=== PATIENT | female | born 1945 | race Caucasian/White ===

== ENCOUNTER → 2016-06-01 | Outpatient (CLI) | payer OTHER, MEDICARE ==
[~2016-06-01] VITALS: Ht 160 cm; Wt 109.0 kg
[~2016-06-01] MED LIST: ASA81BEC PO; AVAPRO300 MG PO; BYSTOLIC 5 MG5 M1 PO; CHLORTHALIDONE25 MG PO; CIPROFLOXACIN500 M1 PO; GLUCOSAMINE HC500 MG PO; HYDRALAZINE 5050 MG PO; IBUPROFEN 200200 M1 PO; IRBESARTAN-HCT1 EACH PO; IRBESARTAN300 MG PO; LEVEMIR SUBQ; LOPRESSOR100 M1 PO; MAGNESIUM PO; NEURONTIN 300300 M1 PO; NOVOLOG100 UNIT/1 SUBQ; TRAVATAN Z2.5 ML OPHTHALMIC; UNICOMPLEX M TA1 TA1 PO; VITAMIN D2000 UNIT PO
--- NOTE | ~2016-06-01 | HPC ---
[facility] [place] [address] PAIN MANAGEMENT CONSULTATION Name: LOAN RODRIGUES Room #: REG [facility].#: [id number] Admission: 06/01/16 Attend Phys: Alan Reagan DO Discharge: Date of : 49 Report #: [id number] THIS REPORT FOR: //name// CC: Tano Reagan DATE OF SERVICE: 06/01/2016 REFERRING PHYSICIAN: Tano Brown MD CHIEF COMPLAINT: Low back pain, left lower extremity pain and paresthesias, chronic neck pain, right upper extremity pain and paresthesias. HISTORY OF PRESENT ILLNESS: As you know, the patient is a morbidly obese 71-year-old female returning in followup visit to review MRI of the lumbar spine obtained on 05/18/2016. She indicates no new injury and no new trauma that have led to progression of symptoms. Her pain is now located in the low back, left lower extremity, radiating all the way of the foot. She indicates that her pain is sharp, numbness, and tingling, exacerbated with lying down, improves with hot shower, walking, and medications. She is placing pain score at 4/10. She returns to review MRI and discuss treatment options. Further findings therein. ALLERGIES: KHRIS INHIBITORS, SULFA, MORPHINE, CODEINE, AMOXICILLIN, and ACTOS. CURRENT MEDICATIONS: Chlorthalidone, irbesartan, multivitamin, cholecalciferol, glucosamine chondroitin, magnesium, aspirin, Bystolic, ibuprofen, travoprost, Levemir, NovoLog, and hydralazine. SOCIAL HISTORY: The patient denies tobacco, alcohol or IV illicit drug use. 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 IMAGING: MRI of the lumbar spine obtained on 05/18/2016, shows L1-L2 unremarkable. L2-L3 shows interval disk space narrowing, mild facet arthropathy, ligamentum flavum hypertrophy. L3-L4, intervertebral disk height is normal. There is a grade 1 anterolisthesis of L3 on L5, mild posterior annular bulging effacing the ventral thecal sac, bilateral facet arthropathy, ligamentum flavum hypertrophy, no neural foraminal stenosis, there is mild central canal stenosis with sac measuring 1.0 cm. L4-L5, intervertebral disk height is normal, grade 1-2 anterolisthesis of L4 on L5, minimal posterior unroofing secondary to anterolisthesis, effacement of ventral thecal sac, bilateral facet arthropathy, ligamentum flavum hypertrophy, reduction of the central canal to moderate levels, moderate bilateral neural foraminal stenosis. L5-S1 unremarkable. PHYSICAL EXAMINATION: [address] [address] PAIN MANAGEMENT CONSULTATION Name: CARENANGLOAN Room #: REG Rui Rees#: [id number] Admission: 06/01/16 Attend Phys: Alan Reagan DO Discharge: Date of : 49 Report #: [id number] VITAL SIGNS: Blood pressure 143/78, pulse 87, respiratory rate 14 and unlabored, the patient is 98% on room air, height 5 feet 3 inches tall, weight 240.4 pounds, and BMI calculated 42.6. GENERAL: Well-developed, well-nourished, well-hydrated, morbidly obese 71-year-old female, appearing her stated age. She is placing pain score today 4/10. HEENT: Normocephalic, atraumatic. Pupils are equal, round, and reactive to light. Extraocular muscles are intact. Sclerae nonicteric without injection. NEUROLOGIC: Cranial nerves 2-12 are grossly intact. Speech is fluent. The patient is deemed a good historian. LUNGS: Clear. No wheezes, rhonchi, or rales. CARDIOVASCULAR: Regular. No appreciable gallop or rub. ABDOMEN: Soft, obese, nontender, and nondistended. EXTREMITIES: Show no clubbing, no cyanosis, and no edema. MUSCULOSKELETAL: Lower extremity strength appears equal and symmetrical 5/5, intact to light touch from L1 through S2 dermatomes. Deep tendon reflexes are symmetrical, but diminished at the patella and Achilles. Seated straight leg raising negative. Supine straight leg raising positive on the left. Ofelia's test is negative. ASSESSMENT: 1. Symptomatic lumbar radiculopathy. 2. Displacement of lumbar intervertebral disk with radiculopathy. 3. Lumbosacral spondylosis with radiculopathy. 4. Spondylolisthesis of L4 on L5. 5. Spinal stenosis of lumbar spine. 6. Lumbar degeneration. 7. Chronic intractable pain. PLAN: 1. The patient has returned today in followup visit where we reviewed in its entirety MRI and how this correlates to the patient's lumbar radicular symptoms. After this 20-minute discussion of the MRI findings for which we used mottling, recent interpretation and digital imaging, the patient had a further understanding of her pathology in the lower lumbar region. We discussed the treatment options that are available for lumbar radiculopathy secondary to a spondylolisthesis and subsequent spinal stenosis at the L4-L5 level. These would include the following. The patient and I discussed treatment options including physical therapy, stretching exercises, core strengthening and a concerted effort at weight loss. We discussed medication management with addition of a neuropathic pain medication and consistent nonsteroidal anti-inflammatory. We discussed lumbar epidural injections under fluoroscopic guidance, spinal cord stimulator therapy and surgical options. After reviewing the risks and benefits of all the proposed treatment options, the patient chose to begin with an epidural [facility] [address] [place] [address] PAIN MANAGEMENT CONSULTATION Name: RAVILOAN Room #: REG [facility].#: [id number] Admission: 06/01/16 Attend Phys: Alan Reagan DO Discharge: Date of : 47 Report #: [id number] injection under fluoroscopic guidance. The patient was advised the risks and benefits of a lumbar epidural injection. These risks include, but are not necessarily limited to bleeding, bruising, infection, worsening of pain, no relief of pain, also risk of temporary or permanent muscle weakness, temporary or permanent nerve damage, possible paralysis and . The patient states she understood and wished to proceed. 2. The patient will return to our clinic in approximately 2-3 weeks. At that time, we will review the efficacy of today's lumbar epidural injection and determine if a repeat injection might be necessary. We will see her back in followup visit and keep you apprised of her response. PROCEDURE NOTE DESCRIPTION OF PROCEDURE: Lumbar epidural steroid injection under fluoroscopic guidance. This is the first procedure of the first series that the patient is undergoing. After obtaining written consent, the patient was taken back to the fluoroscopy suite, placed in a prone position with pillow under the abdomen to decrease lumbar lordosis. The skin overlying the lumbosacral area was then prepped and draped in aseptic fashion. The L5-S1 vertebral interspace was then identified by AP fluoroscopy. The skin and subcutaneous tissue overlying the target site of injection was anesthetized with 3 mL 1% lidocaine. A 20-gauge 4-1/2-inch Tuohy needle was then advanced under fluoroscopic guidance towards the epidural space using a left paramedian approach. The epidural space was identified using loss of resistance to air technique. After negative aspiration for heme or cerebrospinal fluid, a total of 1 mL of Omnipaque was injected. A lumbar epidurogram was confirmed using both AP and lateral fluoroscopy. After negative aspiration for heme or cerebrospinal fluid, 5 mL of a solution containing 2 mL of 40 mg per mL, 80 mg total triamcinolone and 3 mL of lidocaine 1% was injected in increments. Contrast spread was noted posterior epidural space. The needle was then retracted approximately half way and needle tract flushed with 1 mL of 1% lidocaine. Needle was then removed. There were no apparent sensory or motor deficits in the lower extremity following the procedure. A sterile bandage was placed over the injection site. The heart rate, pulse, oximetry and blood pressure were continuously monitored after the procedure. There were no apparent complications. The patient tolerated the procedure well and was carefully [place] [address] PAIN MANAGEMENT CONSULTATION Name: LOAN RODRIGUES Room #: REG CLRui Rees#: [id number] Admission: 06/01/16 Attend Phys: Alan Reagan DO Discharge: Date of : 47 Report #: [id number] condition. There were no apparent complications. After meeting discharge criteria, the patient was then discharged home. <ELECTRONICALLY SIGNED> By: Alan Reagan DO 06/02/16 0832 [id number] 1410 Alan Reagan DO /nt
[2016-06-01 11:06] VITALS: BP 143/78
== END ==
LOC: PAIN 07:14
DX: M47.27 Other spondylosis with radiculopathy, lumbosacral region (principal); M48.06 Spinal stenosis, lumbar region; M51.16 Intervertebral disc disorders with radiculopathy, lumbar region; I10 Essential (primary) hypertension

== ENCOUNTER → 2016-09-22 | Outpatient (CLI) | payer OTHER, MEDICARE ==
[~2016-09-22] VITALS: Ht 160 cm; Wt 110.7 kg
[~2016-09-22] MED LIST changes: +HYDRALAZINE 2525 MG PO
--- NOTE | ~2016-09-22 | HPC ---
[facility] [address] [address] [place] [address] PAIN MANAGEMENT CONSULTATION Name: LOAN RODRIGUES Room #: REG [facility] MarissaLilianeVannessaLiliane#: [id number] Admission: 09/22/16 Attend Phys: Alan Reagan DO Discharge: Date of : 47 Report #: [id number] THIS REPORT FOR: //name// CC: Tano Reagan DATE OF SERVICE: 09/22/2016 REFERRING PHYSICIAN: Tano Brown M.D. CHIEF COMPLAINT: Low back pain, left lower extremity pain and paresthesias. HISTORY OF PRESENT ILLNESS: As you know, the patient is a morbidly obese 71-year-old female who returns today in followup visit with recurrent low back pain, left lower extremity pain and paresthesias. The patient reports a 100% improvement in overall pain with epidural injection provided 3 months ago. She returns today without inciting injury or trauma, with recurrence of pain for which she places pain score 7/10. She states the pain is sharp, numbness and tingling in sensation, exacerbated with lying down and improves with hot shower, walking, medications and epidural injections. She returns today requesting next in the series of epidural injections under fluoroscopic guidance. The patient did feel that part of her symptoms was related to left foot pathology. She sought podiatry consultation and it was determined that her foot was not the source of the patient's symptoms, the lumbar radicular symptoms were from the low back. She returns today for epidural injection under fluoroscopic guidance having done very well with previous injection. ALLERGIES: KHRIS INHIBITORS, SULFA, MORPHINE, CODEINE, AMOXICILLIN, GABAPENTIN, PIOGLITAZONE and DULOXETINE. CURRENT MEDICATIONS: Hydralazine, irbesartan, hydrochlorothiazide, multivitamin, cholecalciferol, glucosamine, magnesium, aspirin, Bystolic, ibuprofen, travoprost, Levemir and NovoLog. SOCIAL HISTORY: The patient denies tobacco, alcohol, IV or illicit drug use. She was retired in 2008, unaccompanied today. PHYSICAL EXAMINATION: VITAL SIGNS: Blood pressure 165/85, pulse 89, respiratory rate 22 and O2 sat 100%. Height 5 feet 3 inches tall, weight 244 pounds and BMI calculated at 43.2. GENERAL: Well-developed, well-nourished, well-hydrated and severely obese 71-year-old female, appearing her stated age, placing current pain score 7-8/10. HEENT: Normocephalic, atraumatic. Pupils equal, round and reactive to light. [place] [address] PAIN MANAGEMENT CONSULTATION Name: LOAN RODRIGUES Room #: REG [facility].#: [id number] Admission: 09/22/16 Attend Phys: Alan Reagan DO Discharge: Date of : 47 Report #: [id number] EXTREMITIES: Show no clubbing, no cyanosis, no edema. MUSCULOSKELETAL: The patient does have pain with rising from a seated position. Ambulation intensifies left lower extremity pain all the way to the foot. Seated straight leg raising negative. Supine straight leg raising positive on the left. Ofelia test negative. ASSESSMENT: 1. Symptomatic lumbar radiculopathy. 2. Displacement of lumbar intervertebral disk with radiculopathy. 3. Lumbosacral spondylosis with radiculopathy. 4. Lumbar facet arthropathy. 5. Lumbar degeneration. 6. Chronic intractable pain. PLAN: 1. The patient returns today in followup visit requesting to undergo next in the series of epidural injections under fluoroscopic guidance. The patient reports 100% improvement in overall pain with the epidural injection provided at last visit. This has lasted for nearly 3 months. She denies new injury or new trauma that may have led to recurrence of symptoms. She has had no changes in her medical history since our last visit. She is requesting we will perform an epidural injection under fluoroscopic guidance in hopes of building on success of the previous intervention. The patient was advised on the risks and benefits of the procedure. She states she understood and wished to proceed. 2. No medication changes were made at today's visit. The patient to continue current medical therapy as previously prescribed. 3. The patient to return to our clinic on an as needed basis for possible repeat epidural injection and discuss other options including surgical and medical. PROCEDURE NOTE PROCEDURE: Lumbar epidural steroid injection under fluoroscopic guidance. This is the second procedure of the first series that the patient is undergoing. After obtaining written consent, the patient was taken back to the fluoroscopy suite, placed in a prone position with pillow under the abdomen to decrease lumbar lordosis. The skin overlying the lumbosacral area was then prepped and draped in aseptic fashion. The lumbar vertebral interspace was then identified by AP fluoroscopy. The skin and subcutaneous tissue overlying the target site of injection was anesthetized with 3 mL 1% lidocaine. A 20-gauge 4.5-inch Tuohy needle was then advanced under fluoroscopic guidance towards the epidural space using a left paramedian approach. The epidural space was identified using loss of resistance to air technique. After negative [address] [address] PAIN MANAGEMENT CONSULTATION Name: LOAN RODRIGUES Room #: REG LACI Rees#: [id number] Admission: 09/22/16 Attend Phys: Alan Reagan DO Discharge: Date of : 47 Report #: [id number] aspiration for heme or cerebrospinal fluid, a total of 1 mL of Omnipaque was injected. A lumbar epidurogram was confirmed using both AP and lateral fluoroscopy. After negative aspiration for heme or cerebrospinal fluid, 5 mL of a solution containing 2 mL 40 mg per mL, 80 mg total triamcinolone and 3 mL of lidocaine 1% was injected in increments. Contrast spread was noted posterior epidural space. The needle was then retracted approximately half way and needle tract flushed with 1 mL of 1% of lidocaine. Needle was then removed. There were no apparent sensory or motor deficits in the lower extremity following the procedure. A sterile bandage was placed over the injection site. The heart rate, pulse, oximetry and blood pressure were continuously monitored after the procedure. There were no apparent complications. The patient tolerated the procedure well and was carefully escorted to the recovery room in stable condition. There were no apparent complications. After meeting discharge criteria, the patient was then discharged home. By: [id number] [id number] Alan Reagan DO /nt
[2016-09-22 09:08] VITALS: BP 165/85
== END ==
LOC: PAIN 08:01
DX: M47.27 Other spondylosis with radiculopathy, lumbosacral region (principal); G89.29 Other chronic pain; E66.01 Morbid (severe) obesity due to excess calories; I10 Essential (primary) hypertension

== ENCOUNTER → 2017-07-13 | Outpatient (CLI) | payer OTHER, MEDICARE ==
[~2017-07-13] VITALS: Ht 160 cm; Wt 113.4 kg
--- NOTE | ~2017-07-13 | P ---
[facility] [place] [address] [place] [address] PROCEDURE REPORT Name: RAVILOAN King Room #: REG [facility]#: [id number] Admission: 07/13/17 Attend Phys: Juan Alberto Jay Discharge: Date of : 47 Report #: [id number] THIS REPORT FOR: //name// CC: Juan Alberto Brown MD DATE OF SERVICE: 07/13/2017 PROCEDURE PERFORMED: Colonoscopy with biopsies. HISTORY OF PRESENT ILLNESS: The patient is a 72-year-old female with a previous history of large colon polyp that I was not able to remove endoscopically in 2015. She therefore underwent a right hemicolectomy by Dr. Glez. She is here for routine followup. She reports 6-8 loose stools per day ever since she had her right hemicolectomy. She denies any abdominal pain or blood in her stools. No family history of colon cancer. DESCRIPTION OF PROCEDURE: The risks and benefits of the procedure were explained to the patient, those risks including but not limited to bleeding, perforation and the risk of sedation. She understood these risks and gave informed consent. Sedation was given using propofol per anesthesia. Next, a digital rectal exam was initially performed, which was normal. Next, using a standard Fujinon colonoscope, the scope was placed in the patient's anus and advanced under direct vision into the right colon, at which point, surgical anastomosis was noted. This was well healed and widely patent. The terminal ileum was intubated and normal in appearance. The scope was then slowly withdrawn. The remaining transverse colon was normal. Descending colon was normal. In the sigmoid colon, multiple diverticula were noted. No evidence of inflammation. A 4 mm sessile polyp was also noted. This was removed with cold forceps. Because of the patient's history of loose stools, random biopsies were also obtained today to rule out the possibility of microscopic colitis. The rectal mucosa was normal. On retroflexion, no abnormalities were noted. The scope was then withdrawn and the procedure terminated. The patient tolerated the procedure well. IMPRESSION: 1. Small colonic polyp. 2. Surgical anastomosis noted in the right colon. 3. Sigmoid diverticulosis. 4. Otherwise, normal colonoscopy. RECOMMENDATIONS: 1. Await biopsy results. 2. Repeat colonoscopy in 5 years. 3. We discussed starting a trial of Questran on a daily basis. A script was [address] [address] PROCEDURE REPORT Name: LOAN RODRIGUES Room #: REG [facility] Cabrera#: [id number] Admission: 07/13/17 Attend Phys: Juan Alberto Jay Discharge: Date of : 47 Report #: [id number] given today. Thank you for allowing me to participate in her care. <ELECTRONICALLY SIGNED> By: Juan Alberto Howell MD 07/18/17 0907 1140 1150 Juan Alberto Howell MD /gerhard
--- NOTE | ~2017-07-13 | S ---
[facility] [address] [address] SURGICAL PATH RPT PROCEDURE Name: LOAN JENKINS Room #: REG LACI Matthews.#: [id number] Admission: 07/13/17 Date of : 49 Discharge: Report #: [id number] Path Case #: [id number] PATHOLOGY REPORT COLLECTION DATE: 07/13/2017 RECEIVED DATE: 07/13/2017 SUBMITTING PHYS: Dr. Juan Alberto Howell OTHER PHYS: Dr. Tano Brown SPECIMEN(S) RECEIVED: A.Random bx of colon R/O microscopic colitis B.Bx of polyp at sigmoid colon * * * * * * * * * * * * FINAL DIAGNOSIS: A. Large intestinal mucosa, random colon, rule out microscopic colitis, endoscopic biopsy: - Mild focal active colitis (please see comment). - Negative for dysplasia or malignancy. B. Polyp, at sigmoid colon, endoscopic biopsy: - Hyperplastic polyp. - Negative for dysplasia. (IUV:christy; 07/14/2017) COMMENT: Examination of the "random colon, rule out microscopic colitis" biopsy tissue shows scattered foci of surface epithelial inflammation, as well as cryptitis. The lamina propria cellularity is mildly increased with a mixture of lymphocytes, plasma cells, eosinophils as well as macrophages. There are no viral inclusions, granulomata, or parasitic organisms present. The crypts are present at regular intervals, and there is no crypt architectural distortion identified. Overall, findings are nonspecific and may be secondary to a resolved episode of colitis, focal mild active colitis, bowel preparation, or medication-induced colitis. Please correlate clinically and follow-up as indicated. (IUV:christy; 07/14/2017) PATHOLOGIST: Mariana Russ M.D. REPORT ELECTRONICALLY SIGNED BY: Mariana Russ M.D. DATE/TIME: 07/14/2017 13:20 * * * * * * * * * * * * GROSS PATHOLOGY: A. Received in formalin labeled "Loan Jenkins, random BX of colon, rule out microscopic colitis," are 4 segments of freire soft [facility] [place] [address] SURGICAL PATH RPT PROCEDURE Name: LOAN JENKINS Room #: [facility].#: [id number] Admission: 07/13/17 Date of : 49 Discharge: Report #: [id number] Path Case #: [id number] tissue measuring 1.8 x 0.9 x 0.3 cm in aggregate dimensions and ranging from 0.3 to 0.6 cm in maximum dimension. The specimen is submitted entirely in cassette A1. B. Received in formalin labeled "Loan Jenkins, BX of polyp at sigmoid colon," is a segment of freire soft tissue measuring 0.4 cm in maximum dimension. The specimen is submitted entirely in cassette B1. (TSD; 07/13/2017) CLINICAL HISTORY: Pre-OP DX: Hx of polypsdiarrhea Post-OP DX: Diverticulosis INITIAL CPT CODE(S): A; 51485 B; 11326 Professional services performed by [facility] at [facility] [address], [place] [address] Technical services performed by [facility] at [address] [place] [address], [address], [place] [address]. [facility] [address] [place] [address] PHONE: [phone] DIRECTOR: Valentino Junior M.D. * * * END OF REPORT * * *
== END | disposition home or self-care (01) ==
LOC: GI 08:39
DX: K63.5 Polyp of colon (principal); K57.30 Diverticulosis of large intestine without perforation or abscess without bleeding; K52.9 Noninfective gastroenteritis and colitis, unspecified; I10 Essential (primary) hypertension; E11.9 Type 2 diabetes mellitus without complications; E78.5 Hyperlipidemia, unspecified; Z86.010 Personal history of colon polyps; G47.33 Obstructive sleep apnea (adult) (pediatric); Z98.41 Cataract extraction status, right eye; Z90.710 Acquired absence of both cervix and uterus; Z98.0 Intestinal bypass and anastomosis status; Z98.42 Cataract extraction status, left eye; Z98.890 Other specified postprocedural states; Z79.899 Other long term (current) drug therapy; Z79.4 Long term (current) use of insulin; Z88.2 Allergy status to sulfonamides; Z88.6 Allergy status to analgesic agent; Z88.8 Allergy status to other drugs, medicaments and biological substances; Z79.82 Long term (current) use of aspirin
CPT/HCPCS: 62110; 62900

== ENCOUNTER → 2018-04-03 | Outpatient (CLI) | payer OTHER | LOC: CAT 11:01 | DX: Z13.6 Encounter for screening for cardiovascular disorders (principal); E78.00 Pure hypercholesterolemia, unspecified ==

== ENCOUNTER → 2018-04-03 | Outpatient (CLI) | payer OTHER, MEDICARE ==
--- NOTE | ~2018-04-03 | PFR/MVV ---
[facility] [place] [address] PULMONARY FUNCTION MVV/REPORT Name: LOAN RODRIGUES Room #: [facility]#: [id number] Admission: 04/03/18 Attend Phys: Tano Brown MD Discharge: Date of : 49 Report #: [id number] THIS REPORT FOR: //name// COPIES FOR: AGE: 73 SEX/RACE: F/C >> SPIROMETRY: (BTPS) Height: 62.0 in cm Weight: 242 lbs kg Exam Date: 04/03/18 PRE-RX POST-RX PRED BEST %PRED BEST %PRED %CHG FVC LITERS . 2.59 . 2.19 . 85 . 2.27 . 87 . 3 FEV1 LITERS . 2.06 . 1.83 . 89 . 1.88 . 91 . 3 FEV1/FVC % . 82 . 83 . 101 . 83 . 101 . -0 QOB51-85% L/Sec . 2.14 . 2.25 . 105 . 2.15 . 140 . -4 PEF L/SEC . 5.23 . 6.97 . 133 . 7.32 . 140 . 5 FEF50/FIF50 UNITLESS . <1.00 . 1.20 . . 0.82 . . -32 MVV L/Min . 84 . 84 . 100 f 1/Min . . 90 . >> LUNG VOLUMES: (BTPS) PRE-RX POST-RX PRED AVG %PRED AVG %PRED %CHG VC Liters . 2.59 . 2.93 . 113 . . . TLC Liters . 4.41 . 4.33 . 98 . . . RV Liters . 1.77 . 1.40 . 79 . . . RV/TLC % . 40 . 32 . 80 . . . FRC [address] Liters . 1.77 . 1.93 . 109 . . . FRC N2 Liters . 1.77 . . . . . ERV Liters . . 0.53 . . . . IC Liters . . 2.02 . . . . >> DIFFUSION: DLCO ml/Min/mmHg . 24.4 . 11.1 . 46 . . . DL Nyasia ml/Min/mmHg . 24.4 . 11.1 . 46 . . . DLCO/VA ml/Min/mmHg . 3.61 . 4.13 . 114 . . . VA Liters . . 2.70 . . . . [facility] [address] [place] [address] PULMONARY FUNCTION MVV/REPORT Name: LOAN RODRIGUES Room #: [facility].#: [id number] Admission: 04/03/18 Attend Phys: Tano Brown MD Discharge: Date of : 49 Report #: [id number] COMMENTS: COMMENTS: >> RESISTANCE: PRE-RX PRED AVG %PRED Raw Total cmH20/L/Sec . . 4.17 . Raw Insp cmH20/L/Sec . . 4.73 . Raw Exp cmH20/L/Sec . . 5.38 . Raw cmH20/L/Sec . 2.31 . 2.45 . 106 Gaw L/Sec/cmH20 . 0.423 . 0.408 . 96 sRaw cmH20 Sec . 4.07 . 4.91 . 120 sGaw l/cmH20 Sec . 0.246 . 0.204 . 83 Vtq Liters . . 2.00 . # = OUTSIDE 95% CONFIDENCE INTERVAL CALIBRATION: PRED: 3.00 ACTUAL: EXP 3.01 INSP 3.02 [facility]-OL10-06 [facility]-05 N-1804-4 >> INTERPRETATION/IMPRESSION: CC: Tano Bush DATE OF SERVICE: 04/03/2018 SPIROMETRY FEV1 is 1.83 L (89%). FVC 2.19 L (85%). FEV1/FVC is 83%. Postbronchodilator therapy: No significant response. Total lung capacity is 4.33 L (98%). RV 1.40 L (79%). Diffusing capacity is 46%. [address] [address] PULMONARY FUNCTION MVV/REPORT Name: LOAN RODRIGUES Room #: [facility] LACI Rees#: [id number] Admission: 04/03/18 Attend Phys: Tano Brown MD Discharge: Date of : 49 Report #: [id number] Pulmonary function studies are consistent with normal pulmonary function. Diffusing capacity is moderately decreased. Please correlate clinically. By: Ajit Crow MD /gerhard
== END ==
LOC: PUL 09:32
DX: R06.02 Shortness of breath (principal)

== ENCOUNTER → 2019-01-24 | Outpatient (CLI) | payer OTHER, MEDICARE | LOC: RAD 14:15 | DX: R06.00 Dyspnea, unspecified (principal) ==

== ENCOUNTER → 2019-01-26 | Outpatient (CLI) | payer OTHER, MEDICARE | LOC: PULREHAB 09:07 | DX: R06.02 Shortness of breath (principal); Z88.2 Allergy status to sulfonamides; Z88.1 Allergy status to other antibiotic agents; Z88.5 Allergy status to narcotic agent; Z88.8 Allergy status to other drugs, medicaments and biological substances ==

== ENCOUNTER → 2020-08-12 | Outpatient (CLI) | payer OTHER, MEDICARE | LOC: RAD 09:29 | PROVIDERS: ATTEND Internal Medicine | DX: M25.552 Pain in left hip (principal); I10 Essential (primary) hypertension; E11.9 Type 2 diabetes mellitus without complications; Z98.890 Other specified postprocedural states; Z79.899 Other long term (current) drug therapy; Z90.710 Acquired absence of both cervix and uterus ==

== ENCOUNTER 2020-08-29 11:53 | Inpatient (IN) | payer OTHER, MEDICARE ==
[~2020-08-29] VITALS: Ht 162.6 cm; Wt 108.9 kg
--- NOTE | ~2020-08-29 | EMS ---
[address] [address] EMS Patient Care Report Name: LOAN RODRIGUES Room #: REG LOI Rees#: [id number] Admission: 08/29/20 Attend Phys: Discharge: Date of : 49 Report #: [id number] THIS REPORT FOR: //name// Report Transmitted: 08/29/2020 14:41 EMS Care Summary [facility] MED-ACT Incident [id number] @ 08/29/2020 11:21 Incident Location [address] [place] [address] Patient LOAN RODRIGUES Female, 75 Years 1945 Patient Address [address] [facility] [address] [place] [address] Patient History Diabetes,Hypertension (HTN), Patient Allergies Codeine,Morphine,Sulfa,Amoxicillin,Amitriptyline,Cipro,Gabapentin,Actos, Patient Medications Chlorthalidone, Bystolic, Insulin, Hydralazine, Chief Complaint L hip and thigh pain Disposition Transported No Lights/[place] Reason Sick Person Transported To [facility] Narrative We arrived to find the pt sitting in a wheelchair in a recovery room of the clinic. Pt was at a pain clinic to be seen for L hip pain. The pt presents in mild discomfort as the staff wheeled her to the hallway. Staff stated that the [address] [address] EMS Patient Care Report Name: LOAN RODRIGUES Room #: REG [facility]#: [id number] Admission: 08/29/20 Attend Phys: Discharge: Date of : 49 Report #: [id number] pt was getting a lumbar puncture for her hip pain and the doctor "hit the nerve". Immediately the pt felt a sharp shooting pain down her L thigh. They gave her a total of 100 mcg of Fentanyl and 1cc of versed for the pain, but the pt had no relief so 911 was called. The pt said that the pain in her hip and now her thigh have continued and she has no relief with the meds that were given. Pt also stated that she didn't want any other medications because, "she didn't want to get addicted". Pt denied any other trauma or complaints. Pt was assisted to stand and sit on the cot. Pt rested comfortably en route to the ED. During the biocom to [facility], they advised that the didn't have neuro surgery currently. The pt was told this, but still requested [facility], because it's "the only hospital I go to". Pt care was transferred to [facility] staff without incident. Initial Vitals @11:43P: 84,BP: 139/69,SpO2: 99, @11:37P: 83,R: 18,BP: 147/82,Pain: 8/10,GCS: 15,Temp: 98F,SpO2: 99,Revised Trauma: 12, Assessments @11:35MENTAL:Person Oriented,Time Oriented,Place Oriented,Event Oriented,SKIN:HEENT:LUNG SOUNDS:ABDOMEN:PELVIS//GI:No Abnormalities,EXTREMITIES:PULSE:NEURO: Impression Pain (Non-Traumatic) Procedures @PTASurgical Mask on PatientResponse: Unchanged@PTASaline Lock 10cc (22 ga) Site: Hand-LeftResponse: Unchanged Timeline ACCOUNTS PAYABLE TECHNICIAN,Surgical Mask on Patient,Response: Unchanged ACCOUNTS PAYABLE TECHNICIAN,Saline Lock 10cc 22 ga Site: Hand-Left,Response: Unchanged 11:20,Call Received 11:20,Psap Call 11:21,Dispatched 11:22,En Route 11:28,On Scene 11:30,At Patient 11:37,BP: 147/82 M,PULSE: 83,RR: 18 R,SPO2: 99 Ox,ETCO2: ,BG: ,PAIN: 8,GCS: 15, 11:37,Depart Scene 11:43,BP: 139/69 M,PULSE: 84,RR: R,SPO2: 99 Ox,ETCO2: ,BG: ,PAIN: ,GCS: , 11:48,At Destination [address] [address] EMS Patient Care Report Name: LOAN RODRIGUES Room #: REG LOI Rees#: [id number] Admission: 08/29/20 Attend Phys: Discharge: Date of : 49 Report #: [id number] 12:01,Call Closed Disclaimer [email or web address] Copyright 2020 [employer] This EMS Care Summary contains data elements from the applicable legal record (which may be displayed differently). It is designed to provide pertinent information for the following purposes: continuity of care, clinical quality, and state data reporting. The complete legal record is available to ED staff and administrators of the receiving hospital in [facility]'s Patient Tracker. All data is provided "as is."
[2020-08-29 11:53] VITALS: BP 154/72
[2020-08-29] MEDS ORDERED: TELMISARTAN80 MG PO (11:58)
[2020-08-29] MEDS ORDERED: HUMALOG100 UNIT/1 SUBQ (11:59)
[2020-08-29] MEDS ORDERED: LANTUS100 UNIT/M SUBQ (12:00)
[2020-08-29 14:26] LABS: ABSOLUTE NEUTROPHILS 8.5 thou/uL (1.4-8.2); BASOPHILS 0.7 % (0.0-2.0); EOSINOPHILS 1.1 % (0.0-3.0); HEMATOCRIT 41.9 % (37.0-47.0); HEMOGLOBIN 13.6 gm/dL (12.0-15.0); LYMPHOCYTES 4.7 % (24.0-44.0); MCH 27.8 pg (26.0-34.0); MCHC 32.4 g/dL (28.0-37.0); MCV 85.8 fL (80.0-100.0); MONOCYTES 2.9 % (1.0-8.0); PLATELET COUNT 204 thou/uL (150-400); POLYS 90.6 % (36.0-66.0); RBC 4.89 mil/uL (4.20-5.00); RDW 15.4 % (10.5-14.5); WBC 9.4 thou/uL (4.0-11.0)
[2020-08-29 14:44] LABS: ANION GAP 4 mmol/L (7-16); BUN 50 mg/dL (7-18); CALCIUM 9.1 mg/dL (8.5-10.1); CHLORIDE 110 mmol/L (98-107); CO2 25 mmol/L (21-32); CREATININE 2.2 mg/dL (0.6-1.0); GLUCOSE 161 mg/dL (74-106); SODIUM 139 mmol/L (136-145); TROPONIN-I <0.06 ng/mL (<0.06)
[2020-08-29 14:50] LABS: POTASSIUM 6.1 mmol/L (3.5-5.1)
--- NOTE | 2020-08-29 14:54 | EKG ---
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
[2020-08-29 18:05] LABS: CREATININE 2.1 mg/dL (0.6-1.0)
[2020-08-29 18:12] LABS: POTASSIUM 6.2 mmol/L (3.5-5.1)
[2020-08-29 18:45] LABS: MAGNESIUM 1.8 mg/dL (1.8-2.4); PHOSPHORUS 3.9 mg/dL (2.5-4.9)
[2020-08-29 20:00] VITALS: BP 153/68
[2020-08-29 20:27] VITALS: BP 139/58
[2020-08-29 21:26] VITALS: BP 121/101
--- NOTE | 2020-08-30 02:34 | NUR ---
PT ADMITTED TO THE UNIT WITH HIGH POTASSIUM LEVEL.PT WENT TO THE PAIN CENTER TO RECEIVE LUMBAR PUNCTURE FOR PAIN RELIEF AND REPORTS PHYSICIAN MISSED AND HIT A NERVE.PT REPORT SHARP ADND STABBING PAIN ON LEFT HIP AND LEFT THIGH.PT HAS A HISTORY OF CHRONIC BACK PAIN.PT IS A/O X4.PT IS UP WITH X4 ASSIST TO BSC WITH WALKER AND GAIT BELT.PT IS ACCUCHCEK ACHS WITH LOW SSI.PT HAS KAYEXALATE AT THE ER AND INSULIN TO MANAGE HIGH POTASSIUM LEVEL.PT IS ON ROOM AIR.IV ACCESS ON LT HAND WITH NS AT 125CC/HR.PT LIVES ALONE IN AN APARTMENT.WILL CONTINUE TO MONITOR PER POC
[2020-08-30 05:00] VITALS: BP 108/39
[2020-08-30 06:05] LABS: ALBUMIN 2.3 g/dL (3.4-5.0); CALCIUM 8.3 mg/dL (8.5-10.1); CREATININE 1.9 mg/dL (0.6-1.0); PHOSPHORUS 3.7 mg/dL (2.5-4.9)
[2020-08-30 06:06] LABS: POTASSIUM 5.1 mmol/L (3.5-5.1)
[2020-08-30 07:24] VITALS: BP 116/48
--- NOTE | 2020-08-30 15:56 | NUR ---
Patient asked for cream for left hip pain, DR. Lebron kenyon, awaiting response.
[2020-08-30 16:48] VITALS: BP 120/52
--- NOTE | 2020-08-30 17:53 | NUR ---
A/O, calm and cooperative. vss, afebrile. Patient got up to walk to the bathroom with a walker and standby assist.
[2020-08-30 20:21] VITALS: BP 127/55
[2020-08-31 05:15] LABS: ALBUMIN 2.3 g/dL (3.4-5.0); CALCIUM 8.1 mg/dL (8.5-10.1); CREATININE 1.8 mg/dL (0.6-1.0); PHOSPHORUS 3.4 mg/dL (2.5-4.9); POTASSIUM 4.4 mmol/L (3.5-5.1)
--- NOTE | 2020-08-31 07:39 | NUR ---
Assumed pt care at 1900. A/OX4,VSS. Pt is up with AX1 GB/RW,limp gait d/t lower back/left hip pain. Music Professor Nuria notified for pain meds, Lidocaine patch/APAP ordered with little relief reported. Continent of B&B. Fall precautions in place,calls approp for help.
[2020-08-31 08:30] VITALS: BP 139/69
[2020-08-31] MEDS ORDERED: ULTRAM50 MG PO (10:16)
[2020-08-31 12:09] VITALS: BP 139/69
--- NOTE | 2020-08-31 18:35 | NUR ---
PT A&OX4, VSS, DENIED PAIN IN THE AM. PATIENT DISCHARGED HOME, ALL BELONGINGS WITH PATIENT. PATIENT REFUSED SLIDING SCALE INSULIN. IV REMOVED BEFORE DISCHARGE. PATIENT MONITORED ON TELE AND SINUS RHYTHM ON MONITOR. PATIENT VERBALIZED UNDERSTANDING OF DISCHARGE PAPERWORK NO SIGNS OF DISTRESS AT DISCHARGE.
== END 2020-08-31 17:18 | disposition home or self-care (01) | DRG 641 ==
LOC: ER 11:53 → EROBS 18:43 → 4W 21:14
PROVIDERS: Emergency Medicine; ADMIT Hospitalist; ATTEND Hospitalist
DX: E87.5 Hyperkalemia (principal); N17.9 Acute kidney failure, unspecified; N18.30 Chronic kidney disease, stage 3 unspecified; I12.9 Hypertensive chronic kidney disease with stage 1 through stage 4 chronic kidney disease, or unspecified chronic kidney disease; E11.22 Type 2 diabetes mellitus with diabetic chronic kidney disease; M47.816 Spondylosis without myelopathy or radiculopathy, lumbar region; G47.30 Sleep apnea, unspecified; M51.26 Other intervertebral disc displacement, lumbar region; Z90.49 Acquired absence of other specified parts of digestive tract; Z90.710 Acquired absence of both cervix and uterus; Z98.42 Cataract extraction status, left eye; Z98.41 Cataract extraction status, right eye; Z99.81 Dependence on supplemental oxygen; Z79.4 Long term (current) use of insulin; Z79.899 Other long term (current) drug therapy; Z79.82 Long term (current) use of aspirin; Z88.1 Allergy status to other antibiotic agents; Z88.2 Allergy status to sulfonamides; Z88.8 Allergy status to other drugs, medicaments and biological substances; Z88.5 Allergy status to narcotic agent
CPT/HCPCS: 10045